=== PATIENT | female | born 1965 | race African-American/Black ===

== ENCOUNTER 2016-08-20 17:50 | Emergency (ER) | payer OTHER ==
[~2016-08-20 17:50] MED LIST: ALBUTEROL2.5 MG/31 IH; ALBUTEROL2.5 MG/32; AMOXICILLIN 25250 M1 PO; AUGMENTIN 875875 MG PO; COMBIVENT INH; COMBIVENT RESPIM4 GM IH; DARVOCET-N 1001 EACH PO; DOXYCYCLINE 10100 MG PO; HYDROCODON-ACE1 EA12 PO; LEVAQUIN 500 M500 M2 PO; MOBIC15 MG PO; NICOTINE TRANSD21 M1; NOHOMEMEDICATIONS; NORCO 5-325 TA1 EACH PO; PERCOCET 5-3251 EACH PO; PREDNISONE 10 M10 MG PO; PREDNISONE 20 M20 MG PO; PREDNISONE50 MG PO; PROAIR HFA8.5 GM INH; PROMETHAZINE-C120 ML PO; PROMETHAZINE/C118 ML PO; SPIRIVA INH; TESSALON PERLE100 MG PO; TORADOL 10 MG T10 MG PO; TUSSIONEX PENN473 ML PO; TYLENOL325 MG PO; VENTOLIN HFA 1818 GM INH; XANAX 0.5 MG0.5 M1 PO; ZPAK PO
== END 2016-08-20 23:00 | disposition left against medical advice (07) ==
LOC: ER 17:50
DX: Z53.21 Procedure and treatment not carried out due to patient leaving prior to being seen by health care provider (principal)

== ENCOUNTER 2016-11-10 23:24 | Observation (INO) | payer OTHER ==
[~2016-11-10] VITALS: Ht 170.2 cm; Wt 81.2 kg
--- NOTE | ~2016-11-10 | EKG ---
[place] [address] [facility] [place] [address] ELECTROCARDIOGRAM REPORT Name: GREGG ARTHUR Room #: 405-P 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
[2016-11-10 23:26] VITALS: BP 136/94
[2016-11-10] MEDS ORDERED: XANAX 0.5 MG0.5 MG (23:55)
[2016-11-11 01:08] LABS: ABSOLUTE NEUTROPHILS 2.2 thou/uL (1.4-8.2); BASOPHILS 1.1 % (0.0-2.0); EOSINOPHILS 1.8 % (0.0-3.0); HEMATOCRIT 45.5 % (37.0-47.0); HEMOGLOBIN 16.1 gm/dL (12.0-15.0); LYMPHOCYTES 55.4 % (24.0-44.0); MCH 34.6 pg (26.0-34.0); MCHC 35.3 g/dL (28.0-37.0); MONOCYTES 6.9 % (1.0-8.0); PLATELET COUNT 205 thou/uL (150-400); POLYS 34.8 % (36.0-66.0); RBC 4.65 mil/uL (4.20-5.00); RDW 12.9 % (10.5-14.5); WBC 6.3 thou/uL (4.0-11.0)
[2016-11-11 01:13] LABS: ANION GAP 9 mmol/L (7-16); BUN 18 mg/dL (7-18); CALCIUM 9.7 mg/dL (8.5-10.1); CHLORIDE 104 mmol/L (98-107); CO2 28 mmol/L (21-32); CREATININE 1.1 mg/dL (0.6-1.0); GLUCOSE 104 mg/dL (74-106); POTASSIUM 3.8 mmol/L (3.5-5.1); SODIUM 141 mmol/L (136-145)
[2016-11-11 01:21] LABS: ALBUMIN 3.5 g/dL (3.4-5.0); ALKALINE PHOSPHATASE 98 U/L (46-116); MAGNESIUM 2.2 mg/dL (1.8-2.4); MANUAL DIFF NO; SGOT 17 U/L (15-37); SGPT 27 U/L (30-65); TOTAL BILIRUBIN 0.2 mg/dL (<0.1-1.0); TOTAL PROTEIN 7.6 g/dL (6.4-8.2); TROPONIN-I < 0.04 ng/mL (<0.04-0.07)
[2016-11-11 02:15] VITALS: BP 136/94
[2016-11-11 02:28] VITALS: BP 134/68
[2016-11-11 08:13] VITALS: BP 120/74
[2016-11-11 16:09] VITALS: BP 136/76
[2016-11-11 18:54] VITALS: BP 120/56
[2016-11-12 03:25] VITALS: BP 115/83
[2016-11-12 06:20] LABS: HEMATOCRIT 46.9 % (37.0-47.0); HEMOGLOBIN 16.1 gm/dL (12.0-15.0); MCH 33.7 pg (26.0-34.0); MCHC 34.3 g/dL (28.0-37.0); MCV 98.3 fL (80.0-100.0); RBC 4.77 mil/uL (4.20-5.00); RDW 13.1 % (10.5-14.5)
[2016-11-12 06:30] LABS: WBC 23.1 thou/uL (4.0-11.0)
[2016-11-12 06:36] LABS: CALCIUM 9.7 mg/dL (8.5-10.1); CREATININE 0.8 mg/dL (0.6-1.0); POTASSIUM 4.6 mmol/L (3.5-5.1)
[2016-11-12 08:06] LABS: HEMATOCRIT 48.1 % (37.0-47.0); HEMOGLOBIN 16.4 gm/dL (12.0-15.0); MANUAL DIFF YES; MCH 33.9 pg (26.0-34.0); MCHC 34.2 g/dL (28.0-37.0); MCV 99.2 fL (80.0-100.0); PLATELET COUNT 225 thou/uL (150-400); RBC 4.85 mil/uL (4.20-5.00); RDW 13.1 % (10.5-14.5)
[2016-11-12 08:22] VITALS: BP 110/72
[2016-11-12 08:51] LABS: ABSOLUTE NEUTROPHILS 21.5 thou/uL (1.4-8.2); PLATELET ESTIMATE NORMAL; TOTAL CELL COUNT 100
[2016-11-12 11:24] VITALS: BP 127/93
[2016-11-12 15:56] VITALS: BP 132/86
[2016-11-12 20:00] VITALS: BP 137/91
[2016-11-13 04:00] VITALS: BP 130/80
[2016-11-13 06:14] LABS: HEMATOCRIT 48.6 % (37.0-47.0); HEMOGLOBIN 16.2 gm/dL (12.0-15.0); MCH 33.1 pg (26.0-34.0); MCHC 33.3 g/dL (28.0-37.0); MCV 99.5 fL (80.0-100.0); RBC 4.88 mil/uL (4.20-5.00); RDW 13.2 % (10.5-14.5); WBC 23.3 thou/uL (4.0-11.0)
[2016-11-13 06:29] LABS: CALCIUM 9.7 mg/dL (8.5-10.1); CREATININE 0.8 mg/dL (0.6-1.0); POTASSIUM 4.5 mmol/L (3.5-5.1)
[2016-11-13 20:00] VITALS: BP 136/76
[2016-11-14] VITALS (7 sets, daily range): BP systolic 128–136; BP diastolic 70
[2016-11-14 06:16] LABS: HEMATOCRIT 48.1 % (37.0-47.0); HEMOGLOBIN 16.5 gm/dL (12.0-15.0); MCH 34.1 pg (26.0-34.0); MCHC 34.4 g/dL (28.0-37.0); MCV 99.1 fL (80.0-100.0); PLATELET COUNT 229 thou/uL (150-400); RBC 4.86 mil/uL (4.20-5.00); WBC 15.5 thou/uL (4.0-11.0)
[2016-11-14 06:19] LABS: MANUAL DIFF YES
[2016-11-14 06:21] LABS: CALCIUM 9.3 mg/dL (8.5-10.1); CREATININE 0.7 mg/dL (0.6-1.0); POTASSIUM 4.6 mmol/L (3.5-5.1)
[2016-11-14 09:03] LABS: TOTAL CELL COUNT 100
[2016-11-14] MEDS ORDERED: ATORVASTATIN CA40 MG PO (09:27)
[2016-11-14] MEDS ORDERED: ASPIR 8181 MG PO (09:28)
[2016-11-14] MEDS ORDERED: MEDROL DOSPAK21 TA1 PO (09:29)
[2016-11-14] MEDS ORDERED: CHANTIX1 EACH PO (13:02)
[2016-11-14] MEDS ORDERED: PROAIR HFA8.5 GM INH (13:11)
[2016-11-14] MEDS ORDERED: XANAX 0.5 MG0.5 MG PO (13:11)
== END 2016-11-14 16:29 | disposition home or self-care (01) ==
LOC: ER 23:24 → EROBS 11-11 01:55 → 4N 11-11 01:55 → EROBS 11-11 01:55 → ER 11-11 01:55 → 4N 11-11 02:27 → ENTRNSPT 11-14 16:15 → 4N 11-14 16:29
PROVIDERS: Emergency Medicine; Family Medicine; Nurse Practitioner Family
DX: J44.1 Chronic obstructive pulmonary disease with (acute) exacerbation (principal); F41.9 Anxiety disorder, unspecified; J45.909 Unspecified asthma, uncomplicated; F17.210 Nicotine dependence, cigarettes, uncomplicated; G89.29 Other chronic pain; F12.10 Cannabis abuse, uncomplicated; Z86.73 Personal history of transient ischemic attack (TIA), and cerebral infarction without residual deficits; Z79.899 Other long term (current) drug therapy; Z80.9 Family history of malignant neoplasm, unspecified

== ENCOUNTER 2016-12-21 20:02 | Emergency (ER) | payer OTHER ==
[~2016-12-21] VITALS: Ht 170.2 cm; Wt 81.7 kg
[~2016-12-21 20:02] MED LIST changes: +ASPIR 8181 MG PO; +ATORVASTATIN CA40 MG PO; +CHANTIX1 EACH PO; +MEDROL DOSPAK21 TA1 PO; +XANAX 0.5 MG0.5 MG; +XANAX 0.5 MG0.5 MG PO
[2016-12-21] MEDS ORDERED: OXYGEN MISCELL (20:15)
[2016-12-21] MEDS ORDERED: XANAX 0.25 MG0.25 MG PO (20:15)
[2016-12-21] MEDS ORDERED: PREDNISONE 20 M20 MG PO (22:10)
[2016-12-21] MEDS ORDERED: ALBUTEROL2.5 MG/31 INH (22:10)
[2016-12-21] MEDS ORDERED: VENTOLIN HFA 1818 GM INH (22:14)
== END 2016-12-21 22:20 | disposition home or self-care (01) ==
LOC: ER 20:02
DX: J44.1 Chronic obstructive pulmonary disease with (acute) exacerbation (principal); F41.9 Anxiety disorder, unspecified; G89.29 Other chronic pain; M54.9 Dorsalgia, unspecified; F17.210 Nicotine dependence, cigarettes, uncomplicated; F10.99 Alcohol use, unspecified with unspecified alcohol-induced disorder; Z86.73 Personal history of transient ischemic attack (TIA), and cerebral infarction without residual deficits

== ENCOUNTER 2017-01-05 00:59 | Inpatient (IN) | payer OTHER ==
[~2017-01-05] VITALS: Ht 170.2 cm; Wt 83.0 kg
--- NOTE | ~2017-01-05 | EKG ---
[place] [address] [address] [facility] [place] [address] ELECTROCARDIOGRAM REPORT Name: JERSONRAADGREGG Isaac Room #: 437-P ADM IN M.R.#: [id number] Admission: 01/05/17 Attend Phys: Alem Augustin Discharge: Date of : 67 Report #: [id number] THIS REPORT FOR: //name// [facility] ED Test Date: 2017-01-05 Test Time: 01:19:06 Pat Name: GREGG ARTHUR Department: Room: [facility] Gender: F Community Relations Director: LORRI : 1965 Requested By: Flavio Marroquin Order Number: [id number] MD: Roni Lopez Measurements Intervals [place] Rate: 118 P: 81 DE: 140 QRS: 62 QRSD: 88 T: -7 QT: 305 QTc: 428 Interpretive Statements Sinus tachycardia Biatrial enlargement Borderline T wave abnormalities Baseline wander in lead(s) V5 Compared to ECG 11/11/2016 00:29:21 Atrial abnormality now present T-wave abnormality now present Sinus rhythm no longer present Electronically Signed On 01-05-2017 11:06:34 CDT by Roni Lopez [email or web address] <ELECTRONICALLY SIGNED> By: Roni Lopez MD 01/05/17 1106 0119 0119 Roni Lopez MD /EPI
--- NOTE | ~2017-01-05 | HC ---
[facility] [place] [address] CONSULTATION Name: GREGG ARTHUR Room #: 437-P ADM IN M.R.#: [id number] Admission: 01/05/17 Attend Phys: Oscar Perea MD Discharge: Date of : 67 Report #: [id number] THIS REPORT FOR: //name// CC: FANNIE physician/PCP Alem Augustin REFERRAL PHYSICIAN: Alem Augustin MD REASON FOR CONSULTATION: Dyspnea. HISTORY OF PRESENT ILLNESS: The patient is a 51-year-old -Italian female who presented to the Emergency Room with progressive dyspnea. She has known history of COPD/asthma. A pulmonary consultation was requested. The patient was previously hospitalized here at [facility] in 11/2016. The patient states that she was in her usual state of health until for the last two days, she has noted increasing dyspnea and chest tightness. She smokes about a pack a day. She also smokes marijuana. For that reason, she presented to the Emergency Room. Otherwise, she denies any chest pain, hemoptysis or productive cough. She denies any recent nausea, vomiting or diarrhea. As mentioned, she has smoked most of her life about a pack a day along with marijuana. She also states that she does not have insurance and does not have a regular doctor. According to the patient, she uses 2 liters of O2 continuously at home. She states that she has applied for Medicaid in September and has not received any confirmation regarding her Medicaid status. PAST MEDICAL HISTORY: Notable for asthma along with COPD, apparently oxygen dependent 2 liters; tobacco abuse smoking about a pack a day since 1984; also smokes marijuana; anxiety disorder; chronic pain due to arthritis involving her low back and CVA in 2002 and again in 2006. PAST SURGICAL HISTORY: Status post bilateral tubal ligation. ALLERGIES: None to medications. REPORTED HOME MEDICATIONS: Include AccuNeb q. 4 and Ventolin HFA p.r.n. She was recently given prednisone and alprazolam 0.25 mg b.i.d. FAMILY HISTORY: Noncontributory. [facility] [address] [place] [address] CONSULTATION Name: GREGG ARTHUR Isaac Room #: 437-P [facility] IN ..#: [id number] Admission: 01/05/17 Attend Phys: Oscar Perea MD Discharge: Date of : 67 Report #: [id number] SOCIAL HISTORY: As mentioned above, active smoker smoking about a pack a day and also smokes marijuana. She drinks socially. Denies any injection drug use. REVIEW OF SYSTEMS: As mentioned above, otherwise 10-point system reviewed and negative. PHYSICAL EXAMINATION: GENERAL: She is awake, alert and in mild respiratory distress. VITAL SIGNS: Temperature is 98 degrees Fahrenheit, pulse is 100, respiratory rate is 22, blood pressure 107/54 mmHg and saturation is 95% on 3 liters of O2. HEENT: Normocephalic and atraumatic. NECK: Supple. No neck lymphadenopathy or thyromegaly. CHEST: Breath sounds are fair with mild expiratory wheezes. No rales. CARDIOVASCULAR: Normal S1 and S2. There are no murmurs or gallop. There is no JVD. There is no carotid bruit. Pulses are 2+/4+ bilaterally. ABDOMEN: Soft, nontender, no organomegaly or masses felt. GENITOURINARY: Deferred. RECTAL: Deferred. EXTREMITIES: There is no edema, cyanosis or clubbing. LABORATORY DATA: Chest x-ray is clear. EKG shows sinus tachycardia, biatrial enlargement, borderline T-wave abnormalities. Influenza A and B swab was negative. BNP was normal. Electrolytes are normal. WBC 11,100 and hemoglobin is 16.6 without significant bandemia. Eosinophils are normal. Arterial blood gas revealed pH 7.45, pCO2 of 34 and pO2 of 55 on 2 liters of O2. IMPRESSION: 1. Progressive dyspnea, chest tightness in this 51-year-old -Italian female with a history of COPD/asthma, and tobacco abuse. Etiology is likely due to exacerbation of chronic obstructive lung disease. Pneumonia is felt to be less likely though she does have mild leukocytosis. Cannot rule out early onset of pneumonia. 2. Acute on chronic hypoxic respiratory failure. She apparently is on 2 liters of O2 at home. 3. Polycythemia, may be related to volume depletion. We will repeat hemoglobin. She may have secondary polycythemia due to chronic hypoxia due to a lung disease. 4. Tobacco abuse including marijuana use. Discussed with the patient regarding importance of smoke cessation. 5. Anxiety disorder may be in part related to chronic dyspnea. 6. Chronic back pain. RECOMMENDATION: Agree with current treatment plans including corticosteroids, bronchodilators, and broad-spectrum antibiotics. While on high dose corticosteroids, nebulized inhaled steroids is not necessary. Agree with broad-spectrum antibiotics. Again, strongly recommended smoke cessation [address] [address] CONSULTATION Name: GREGG ARTHUR Room #: 437-P ADM IN M.R.#: [id number] Admission: 01/05/17 Attend Phys: Oscar Perea MD Discharge: Date of : 67 Report #: [id number] counselling. It is also strongly recommended to the patient to have ongoing outpatient followup with a primary care. We will ask case management and social service to assist with her regarding her Medicare application, which was sent in September of this year. I also discussed with the patient if she continues to smoke, her pulmonary disease could worsen where it can potentially be life threatening. The patient voices understanding. Thank you for this consultation. <ELECTRONICALLY SIGNED> By: Charlie Purdy MD 01/07/17 1529 1610 0630 Charlie Purdy MD /nt
[~2017-01-05 00:59] MED LIST changes: +ALBUTEROL2.5 MG/31 INH; +OXYGEN MISCELL; +XANAX 0.25 MG0.25 MG PO
[2017-01-05 01:19] VITALS: BP 136/87; BP 141/99
[2017-01-05 01:34] LABS: EOSINOPHILS 0.4 % (0.0-3.0); HEMATOCRIT 48.2 % (37.0-47.0); HEMOGLOBIN 16.6 gm/dL (12.0-15.0); LYMPHOCYTES 37.8 % (24.0-44.0); MCH 33.5 pg (26.0-34.0); MCHC 34.4 g/dL (28.0-37.0); MCV 97.4 fL (80.0-100.0); MONOCYTES 6.9 % (1.0-8.0); PLATELET COUNT 248 thou/uL (150-400); POLYS 53.9 % (36.0-66.0); RBC 4.95 mil/uL (4.20-5.00); RDW 13.5 % (10.5-14.5); WBC 11.1 thou/uL (4.0-11.0)
[2017-01-05 01:35] LABS: MANUAL DIFF NO
[2017-01-05 01:41] LABS: ANION GAP 12 mmol/L (7-16); BUN 15 mg/dL (7-18); CALCIUM 9.9 mg/dL (8.5-10.1); CHLORIDE 105 mmol/L (98-107); CO2 25 mmol/L (21-32); GLUCOSE 97 mg/dL (74-106); POTASSIUM 4.3 mmol/L (3.5-5.1); SODIUM 142 mmol/L (136-145)
[2017-01-05 01:49] LABS: TROPONIN-I < 0.04 ng/mL (<0.06)
[2017-01-05 02:06] LABS: ABG SAMPLE TYPE ARTERIAL; BE(vivo) 0.5 mmol/L (-2 to +3); HCO3 23.8 mmol/L (22.0-26.0); LACTATE 1.46 mmol/L (0.5-2.0); O2(CT) 19.2 mL/dL (15.0-23.0); PCO2 34.5 mmHg (35.0-45.0); PO2 55.2 mmHg (80.0-100.0); STICK SITE L.RADIAL; pH 7.456 (7.360-7.450); sO2 90.5 % (92.0-98.0); tCO2 24.8 mmol/L (24.0-30.0)
[2017-01-05 02:07] LABS: O2Hb 84.6 % (92.0-98.0)
[2017-01-05 07:06] VITALS: BP 106/65
[2017-01-05 07:30] VITALS: BP 107/54
[2017-01-05 16:00] VITALS: BP 153/67
[2017-01-05 20:00] VITALS: BP 160/96
[2017-01-06 00:41] VITALS: BP 117/76
[2017-01-06 05:30] VITALS: BP 105/66
[2017-01-06 05:46] LABS: HEMATOCRIT 45.8 % (37.0-47.0); HEMOGLOBIN 15.5 gm/dL (12.0-15.0); MCH 33.2 pg (26.0-34.0); MCHC 33.8 g/dL (28.0-37.0); MCV 98.3 fL (80.0-100.0); PLATELET COUNT 246 thou/uL (150-400); RBC 4.66 mil/uL (4.20-5.00); RDW 13.6 % (10.5-14.5); WBC 23.4 thou/uL (4.0-11.0)
[2017-01-06 05:47] LABS: MANUAL DIFF YES
[2017-01-06 05:54] LABS: CALCIUM 9.9 mg/dL (8.5-10.1); CREATININE 0.9 mg/dL (0.6-1.0); MAGNESIUM 2.3 mg/dL (1.8-2.4); POTASSIUM 4.4 mmol/L (3.5-5.1)
[2017-01-06 08:00] VITALS: BP 107/72
[2017-01-06 09:45] LABS: ABSOLUTE NEUTROPHILS 20.1 thou/uL (1.4-8.2); PLATELET ESTIMATE NORMAL; TOTAL CELL COUNT 100
[2017-01-06 16:00] VITALS: BP 121/93
[2017-01-06 19:27] VITALS: BP 147/73
[2017-01-07 03:40] VITALS: BP 118/63
[2017-01-07 08:00] VITALS: BP 135/84
[2017-01-07 16:00] VITALS: BP 140/76
[2017-01-07 20:20] VITALS: BP 155/78
[2017-01-08 03:55] VITALS: BP 143/92
[2017-01-08 06:39] LABS: HEMATOCRIT 45.4 % (37.0-47.0); HEMOGLOBIN 15.2 gm/dL (12.0-15.0); MCH 33.1 pg (26.0-34.0); MCHC 33.5 g/dL (28.0-37.0); MCV 98.9 fL (80.0-100.0); RBC 4.59 mil/uL (4.20-5.00); RDW 13.9 % (10.5-14.5)
[2017-01-08 06:44] LABS: WBC 20.2 thou/uL (4.0-11.0)
[2017-01-08 07:20] VITALS: BP 127/52
[2017-01-08 07:34] LABS: CALCIUM 9.6 mg/dL (8.5-10.1); CREATININE 0.9 mg/dL (0.6-1.0); MAGNESIUM 2.6 mg/dL (1.8-2.4); POTASSIUM 4.6 mmol/L (3.5-5.1)
[2017-01-08 15:50] VITALS: BP 124/81
[2017-01-09 07:15] VITALS: BP 139/88
[2017-01-09 08:00] VITALS: BP 139/88
[2017-01-09 11:10] VITALS: BP 139/88
[2017-01-09] MEDS ORDERED: LEVAQUIN 750 M750 MG PO (13:40)
[2017-01-09] MEDS ORDERED: VENTOLIN HFA 1818 GM INH (13:40)
[2017-01-09] MEDS ORDERED: ALBUTEROL2.5 MG/31 INH (13:40)
[2017-01-09] MEDS ORDERED: PROBIOTIC1 EAC1 PO (13:40)
[2017-01-09] MEDS ORDERED: PREDNISONE 10 M10 MG PO (13:40)
[2017-01-09] MEDS ORDERED: MUCINEX600 MG PO (13:40)
== END 2017-01-09 16:23 | disposition home or self-care (01) | DRG 189 ==
LOC: ER 00:59 → 4S 03:28 → EROBS 03:28 → 4S 07:14
PROVIDERS: Emergency Medicine; Hospitalist; Internal Medicine; Nurse Practitioner
DX: J96.21 Acute and chronic respiratory failure with hypoxia (principal); J44.1 Chronic obstructive pulmonary disease with (acute) exacerbation; F41.9 Anxiety disorder, unspecified; G89.29 Other chronic pain; M54.9 Dorsalgia, unspecified; F17.210 Nicotine dependence, cigarettes, uncomplicated; M19.90 Unspecified osteoarthritis, unspecified site; F12.90 Cannabis use, unspecified, uncomplicated; Z83.6 Family history of other diseases of the respiratory system; Z99.81 Dependence on supplemental oxygen; Z86.73 Personal history of transient ischemic attack (TIA), and cerebral infarction without residual deficits
CPT/HCPCS: 10100

== ENCOUNTER 2017-02-17 02:42 | Inpatient (IN) | payer OTHER ==
[2017-02-17] VITALS (12 sets, daily range): BP systolic 90–142; BP diastolic 66–95
[~2017-02-17] VITALS: Ht 170.2 cm; Wt 81.6 kg
--- NOTE | ~2017-02-17 | O ---
[facility] [place] [address] OPERATIVE REPORT Name: GREGG ARTHUR Room #: 407-P ADM IN M.R.#: [id number] Admission: 02/17/17 Attend Phys: Oscar Perea MD Discharge: Date of : 67 Report #: [id number] THIS REPORT FOR: //name// CC: FANNIE physician/PCP Oscar Perea DATE OF SERVICE: 02/17/2017 PREOPERATIVE DIAGNOSES: Right hand abscess with fifth finger tenosynovitis. POSTOPERATIVE DIAGNOSES: Right hand abscess with fifth finger tenosynovitis. PROCEDURE: Incision and debridement of right hand abscess involving the fifth finger flexor tendon sheath. SURGEON: Dieog Stockton MD INDICATIONS: This 51-year-old female has developed a right hand infection after picking at a callus over the palm in line with the fifth finger at the distal palmar crease. Clinical findings are consistent with a subcutaneous abscess and possible flexor tenosynovitis. We have elected to go ahead with surgical debridement. DESCRIPTION OF PROCEDURE: The patient was taken to the operating room where she was placed under general anesthetic. The right hand was meticulously prepped and draped. An Esmarch bandage was used to gently exsanguinate the hand and left at the mid forearm as a gentle tourniquet. A transverse skin incision was made at the level of the distal palmar crease in line with the fifth ray. There was obvious subcutaneous abscess, and a moderate amount of purulent debris was immediately removed. Cultures were sent. The callus at the margin of this lesion was carefully excised creating a better smooth skin margin. The subcutaneous tissue was then aggressively irrigated with antibiotic irrigation. The area of purulence actually seems to be in the subcutaneous tissues and does not clearly extend to the flexor tendon sheath; however, given the location and her discomfort with finger movement, I felt it was most appropriate to go ahead to open and debride the flexor tendon sheath. Longitudinal skin incision was made in the proximal georges overlying the fifth finger flexor tendon. The sheath seemed to be uneffected without much fluid and certainly no evidence of gross purulence. Nevertheless, there was some reactive synovitis and some fluid collection. The flexor tendon sheath was irrigated proximally and distally. There was no other area of purulence, and this did not seem to extend more proximally into the palm. At this point, the wound appeared to be clean, and I felt the skin edges could be reapproximated in a loose fashion. Several 4-0 Prolene sutures were used to very gently reapproximate the skin edges. The Esmarch bandage was removed. Good hemostasis was established with simple direct [facility] [address] [place] [address] OPERATIVE REPORT Name: GREGG ARTHUR Room #: 407-P [facility] IN M.R.#: [id number] Admission: 02/17/17 Attend Phys: Oscar Perea MD Discharge: Date of : 67 Report #: [id number] pressure for several minutes. A sterile dressing was applied. The patient was awakened and returned to recovery room in good condition. By: [id number] Diego Stockton MD /nt
--- NOTE | ~2017-02-17 | HC ---
[facility] [place] [address] CONSULTATION Name: GREGG ARTHUR Room #: 407-P ADM IN M.R.#: [id number] Admission: 02/17/17 Attend Phys: Oscar Perea MD Discharge: Date of : 67 Report #: [id number] THIS REPORT FOR: //name// CC: FANNIE physician/PCP Oscar Perea DATE OF SERVICE: 02/17/2017 This 51-year-old female presents with right hand pain and swelling consistent with an abscess over the palmar aspect of the 5th finger. She states she had a callus there at the base of the fifth digit in line with the distal palmar crease, which she noted about 10-14 days ago. She states she picked at this callus with a small manicure tool and then developed redness, pain, and swelling. Her current findings are suggestive of a subcutaneous abscess in this region. She is admitted for further evaluation and treatment. At the time of my evaluation, she has no other complaints of discomfort aside from the right hand. Her symptoms are rather well localized over the palm in line with the 5th metacarpal and 5th finger. She does have some discomfort with movement of the 5th digit suggesting some flexor tenosynovitis. This extends to about the mid palm, but not down to the proximal palm or wrist level. She seems to have better movement and less discomfort involving the other digits. Neurologic and vascular status are normal. I think this is consistent with a subcutaneous abscess and possibly flexor tenosynovitis involving the 5th finger. I have explained treatment options, she has already been started on antibiotics, I think a surgical debridement of this area is most appropriate. She understands and wishes to proceed. By: [id number] 1403 Diego Stockton MD /nt
[~2017-02-17 02:42] MED LIST changes: +LEVAQUIN 750 M750 MG PO; +MUCINEX600 MG PO; +PROBIOTIC1 EAC1 PO
[2017-02-17 03:44] LABS: CALCIUM 9.5 mg/dL (8.5-10.1); CREATININE 1.2 mg/dL (0.6-1.0); POTASSIUM 3.6 mmol/L (3.5-5.1)
[2017-02-17 05:07] LABS: HEMATOCRIT 44.2 % (37.0-47.0); HEMOGLOBIN 15.4 gm/dL (12.0-15.0); MANUAL DIFF YES; MCH 34.3 pg (26.0-34.0); MCHC 34.7 % (28.0-37.0); MCV 98.6 fL (80.0-100.0); PLATELET COUNT 257 thou/uL (150-400); RBC 4.48 mil/uL (4.20-5.00); RDW 14.2 % (10.5-14.5); WBC 9.2 thou/uL (4.0-11.0)
[2017-02-17 05:41] LABS: ABSOLUTE NEUTROPHILS 4.2 thou/uL (1.4-8.2); ATYPICAL LYMPHS 14 %; TOTAL CELL COUNT 100
[2017-02-17 05:42] LABS: ANISOCYTOSIS 1+; LARGE PLATELETS FEW; POLYCHROMASIA 1+
[2017-02-18 00:10] VITALS: BP 127/80
[2017-02-18 05:13] VITALS: BP 116/81
[2017-02-18 06:35] LABS: BASOPHILS 0.6 % (0.0-2.0); EOSINOPHILS 0.1 % (0.0-3.0); HEMATOCRIT 41.3 % (37.0-47.0); HEMOGLOBIN 14.1 gm/dL (12.0-15.0); LYMPHOCYTES 20.2 % (24.0-44.0); MCH 34.3 pg (26.0-34.0); MCHC 34.1 g/dL (28.0-37.0); MCV 100.5 fL (80.0-100.0); MONOCYTES 6.5 % (1.0-8.0); PLATELET COUNT 245 thou/uL (150-400); POLYS 72.6 % (36.0-66.0); RBC 4.11 mil/uL (4.20-5.00); RDW 14.2 % (10.5-14.5); WBC 12.3 thou/uL (4.0-11.0)
[2017-02-18 06:43] LABS: MANUAL DIFF NO
[2017-02-18 06:50] LABS: CALCIUM 8.8 mg/dL (8.5-10.1); CREATININE 0.7 mg/dL (0.6-1.0); MAGNESIUM 2.1 mg/dL (1.8-2.4); POTASSIUM 4.1 mmol/L (3.5-5.1)
[2017-02-18 16:00] VITALS: BP 111/81
[2017-02-18 20:51] VITALS: BP 103/76
[2017-02-19 04:49] VITALS: BP 125/91
[2017-02-19 05:41] LABS: HEMATOCRIT 38.7 % (37.0-47.0); HEMOGLOBIN 13.1 gm/dL (12.0-15.0); MCHC 33.8 g/dL (28.0-37.0); MCV 100.6 fL (80.0-100.0); RBC 3.84 mil/uL (4.20-5.00); RDW 14.5 % (10.5-14.5); WBC 10.5 thou/uL (4.0-11.0)
[2017-02-19 05:48] LABS: CALCIUM 8.7 mg/dL (8.5-10.1); CREATININE 0.7 mg/dL (0.6-1.0); POTASSIUM 4.3 mmol/L (3.5-5.1)
[2017-02-19 08:00] VITALS: BP 102/74
[2017-02-19] MEDS ORDERED: OXYCODONE HCL 55 MG PO (12:18)
[2017-02-19] MEDS ORDERED: AUGMENTIN 875-1 EACH PO (12:23)
[2017-02-19 12:49] VITALS: BP 102/74
== END 2017-02-19 14:00 | disposition home or self-care (01) | DRG 580 ==
LOC: ER 02:42 → EROBS 05:05 → 4N 05:05 → ENTRNSPT 02-19 13:54 → EDTRNSPTSTS 02-19 13:56 → 4N 02-19 14:00
PROVIDERS: Emergency Medicine; Internal Medicine; Nurse Practitioner
PROC: 0JBJ0ZZ Excision of Right Hand Subcutaneous Tissue and Fascia, Open Approach (ICD-10-PCS; principal; 2017-02-17)
DX: L02.511 Cutaneous abscess of right hand (principal); N17.9 Acute kidney failure, unspecified; L03.113 Cellulitis of right upper limb; J44.9 Chronic obstructive pulmonary disease, unspecified; G89.29 Other chronic pain; M54.9 Dorsalgia, unspecified; M65.9 Synovitis and tenosynovitis, unspecified; F41.9 Anxiety disorder, unspecified; F32.9 Major depressive disorder, single episode, unspecified; F12.10 Cannabis abuse, uncomplicated; Z82.5 Family history of asthma and other chronic lower respiratory diseases; Z80.9 Family history of malignant neoplasm, unspecified; Z79.899 Other long term (current) drug therapy; Z87.891 Personal history of nicotine dependence; Z86.73 Personal history of transient ischemic attack (TIA), and cerebral infarction without residual deficits
CPT/HCPCS: 10091; 50010; 50101; 50386; 56526; 57091; 62110; 62900; 70005

== ENCOUNTER 2018-03-31 04:39 | Inpatient (IN) | payer OTHER ==
[~2018-03-31] VITALS: Ht 170.2 cm; Wt 81.2 kg
[2018-03-31] VITALS (9 sets, daily range): BP systolic 99–159; BP diastolic 53–99
[~2018-03-31 04:39] MED LIST changes: +AUGMENTIN 875-1 EACH PO; +OXYCODONE HCL 55 MG PO
[2018-03-31 04:56] LABS: HEMATOCRIT 51.4 % (37.0-47.0); HEMOGLOBIN 17.8 gm/dL (12.0-15.0); MCH 34.3 pg (26.0-34.0); MCHC 34.6 g/dL (28.0-37.0); RBC 5.19 mil/uL (4.20-5.00); RDW 13.7 % (10.5-14.5); WBC 9.6 thou/uL (4.0-11.0)
[2018-03-31 05:04] LABS: ANION GAP 11 mmol/L (7-16); BUN 11 mg/dL (7-18); CALCIUM 9.5 mg/dL (8.5-10.1); CHLORIDE 103 mmol/L (98-107); CO2 25 mmol/L (21-32); GLUCOSE 96 mg/dL (74-106); SODIUM 139 mmol/L (136-145)
[2018-03-31 05:12] LABS: TROPONIN-I <0.06 ng/mL (<0.06)
--- NOTE | 2018-03-31 08:38 | EKG ---
[place] [address] [facility] [place] [address] ELECTROCARDIOGRAM REPORT Name: GREGG ARTHUR Room #: 355-P [facility] IN .R.#: [id number] Admission: 03/31/18 Attend Phys: Oscar Perea MD Discharge: Date of : 67 Report #: [id number] THIS REPORT FOR: //name// [facility] ED Test Date: 2018-03-31 Test Time: 05:03:25 Pat Name: GREGG ARTHUR Department: Room: 355 Gender: F Assembly Operator: beronica : 1965 Requested By: Flavio Marroquin Order Number: [id number] MD: Ken Redding Measurements Intervals [place] Rate: 96 P: 78 MA: 156 QRS: 67 QRSD: 91 T: 45 QT: 334 QTc: 422 Interpretive Statements Sinus rhythm Right atrial enlargement Compared to ECG 01/05/2017 01:19:06 Sinus tachycardia no longer present Electronically Signed On 03-31-2018 8:38:49 MULE TENDER by Ken Redding [email or web address] <ELECTRONICALLY SIGNED> By: Ken Redding MD, [facility] 03/31/18 0838 0503 050 Ken Redding MD, FAC /EPI
--- NOTE | 2018-03-31 15:18 | NUR ---
ASSUMED CARE AT 0700. PT WAS ADMITTED FROM ER UNDER 'S CARE. ADMITTED FOR COPD EXACERBATION. SEEN BY LENY BOUDREAUX AND AT BEDSIDE. NON CARDIAC CHEST PAIN IS TX WITH OXYCODONE AND PT REPORT RELIEF AFTER OXYCODONE. PT IS ON 2L OXYGEN. PER PT, PT USES O2 AT HOME. LUNG SOUNDS ARE DINISHED AND LABORED AT THE TIME OF THE ADMISSION. ABLE TO VOID FREELY ON BESDIE COMMODE. IV LEVAQUIN STARTED. ABDOMEN IS OBESE AND SOFT. DENIES ANY GI RELASTED SYMPTOMS AT THIS POINT. NO S/S ACUTE DISTRESS NOTED OR REPORTED AT THIS TIME. WILL CONT TO MONITOR FOR ANY CHANGES IN CONDITION.
--- NOTE | 2018-03-31 15:19 | NUR ---
ASSESSMENT: CM REVIEWED CHART AND MET WITH PATIENT AT THE BEDSIDE. PT IS ALERT AND ORIENTED X4. PT WAS ADMITTED DUE TO COPD EXACERBATION. PT REPORTS THAT SHE LIVES IN AN APT WITH HER SON. PT REPORTS SHE IN ON A FIRST LEVEL APT SO HAS NO STEPS SHE HAS TO USE. PT REPORTS SHE IS INDEPENDENT WITH ADLS AND AMBULATION. PT STATES SHE CURRENTLY HAS A CONCENTRATOR AT HER HOME AND USES OXYGEN AT TIMES. CM ASKED WHICH COMPANY WAS SUPPLYING HER OXYGEN AND SHE STATED WELL NOONE ANYMORE I JUST HAVE TO CONCENTRATOR STILL. PATIENT WAS LISTED PATIENT PAY AND PT REPORTS THAT SHE CURRENTLY DOES NOT HAVE ANY INSURANCE BUT STATES SHE IS DISABLED AND HIRED AN PLEATER HAND TO GET MEDICAID BUT REPORTS IT WILL NOT KICK IN UNTIL SEPTEMBER. CM DISCUSSED REFERRAL TO [facility] WITH PATIENT AND PT WAS AGREEABLE WITH REFERRAL SO [facility] CAN CHECK THE STATUS OF HER MEDICAID. CM ALSO REACHED OUT TO STAFF TO SEE IF SHE QUALIFIES FOR MEDICATION ASSISTANCE. PT WILL ALSO NEED A NEBULIZER AT DISCHARGE. CM REACHED OUT TO [facility] WHO STATES THEY DO NOT SUPPLY [facility] NEBULIZERS BUT PATIENT COULD LIKELY PURCHASE ONE AT [facility]. CM WILL CONTINUE TO FOLLOW.
[2018-04-01 00:30] VITALS: BP 124/75
[2018-04-01 04:40] VITALS: BP 114/73
--- NOTE | 2018-04-01 05:39 | NUR ---
ASSUMED PT CARE AT 1900 WITH NO SIGN OF DISTRESS NOTED IN PT. PT IS ALERT AND ORIENTED WITH NO SIGN OF DISTRESS NOTED IN PT. PT IS ON 2L NC AND USES HOME OXYGEN AT HOME. SCHEDULED MED ADMINISTERED TO PT. PT IS STABLE, RECEIVING SCHEDULED BREATHING TREATMENT. PAIN MED ADMINISTERED, DENIES ANY FURTHER NEEDS AT THIS TIME.
[2018-04-01 08:22] VITALS: BP 144/93
--- NOTE | 2018-04-01 14:46 | NUR ---
AAOX4. CALM, PLEASANT. ANXIOUS ONCE AFTER NOT RECEIVING THE CORRECT LUNCH. XANAX GIVEN ORDERED. NSR PER TELE. FREQUENT CHECKS; WILL CONTINUE TO MONITOR.
[2018-04-01 15:55] VITALS: BP 142/91
--- NOTE | 2018-04-01 18:23 | NUR ---
[facility] TO [facility] BY [facility] W/O2, ACCOMPANIED BY VOLUNTEER. REPORT CALLED TO KEYONNA CID. DR. ARAUJO HAS OKAYED THE MOVE AND DISCONTINUANCE OF TELE.
[2018-04-01 18:41] VITALS: BP 132/87
--- NOTE | 2018-04-01 19:48 | NUR ---
PATIENT TRANSFERRED FROM [facility], REPORT FROM MIKI/RN. PATIENT ALERT AND ORIENTED X 4. UP AD ROBIN. O2 AT 2-3 LITERS/NC. MAY DISCHARGE ON FRIDAY.
--- NOTE | 2018-04-02 04:41 | NUR ---
Pt A/OX4,up ad yo without difficulties. C/o non-cardiac chest pain r/t coughing,medicated with Oxycodone with some relief reported.Pt has IRAHETA,O2 on @ 2.5L/NC.Tessalon jett administered at HS and effective. Pt also did request for a nicotine patch at beginning of shift,order obtained from [facility] and patch applied. Voiding without any problems reported. IV patent on left hand. Call light/personal items within reach,will continue to monitor pt.
[2018-04-02 07:45] VITALS: BP 143/90
--- NOTE | 2018-04-02 10:51 | NUR ---
ELIDIA reviewed chart and spoke with nursing and attending physician. [facility] from and is slowly progressing towards goals for discharge. Brenda is working with pt on her Medicaid application. Pt will need a nebulizer and possible home O2. ELIDIA is following to assist as needed with discharge planning.
--- NOTE | 2018-04-02 16:22 | NUR ---
PATIENT CARE WAS ASSUMED AT 0715.PATIENT IS ALERT AND ORIENTED X4.PATIENT HAS NO PAIN AT THIS TIME.PT HAS SOME ANXIETY ABOUT NOT BEING ABLE TO SMOKE.PT HAS PATCH IN PLACE.PT WAS GIVEN MEDS FOR ANXIETY.VITALS WERE STABLE.IV IS INTACT AND SALINE LOCKED.PT IS RESTING IN BED.WILL CONTINUE TO MONITOR PATIENT. CALL LIGHT, PHONE, AND PERSONAL BELONGINGS ARE WITHIN REACH.
[2018-04-02 19:55] VITALS: BP 131/79
--- NOTE | 2018-04-02 23:41 | NUR ---
Assumed pt care at 1900. Pt A/OX4,up ad yo in room.Pt c/o coughing spells that are making her have stress incontinence and requested for cough syrup.Order obtained from Merly MICHELE for Tussionex 5ml BID PRN,medication administered with relief reported. LS are coarse/crackles,reports yellow sputum at times. Has IRAHETA 02 @2.5L/NC. Nicotine patch applied on left shoulder. Resting quietly with eyes closed breathing with ease.Call light/personal items within reach.
[2018-04-03 02:27] VITALS: BP 133/92
[2018-04-03 08:15] VITALS: BP 129/80
--- NOTE | 2018-04-03 11:59 | NUR ---
PATIENT CARE WAS ASSUMED AT 0715.PATIENT IS ALERT AND ORIENTED X4.PT IS VERY SLEEPY, DUE TO NOT GETTING ENOUGH REST LAST NIGHT.PT HAS NO PAIN AT THIS TIME.VITALS ARE STABLE.IV IS INTACT AND SALINE LOCKED.CALL LIGHT,PHONE, AND PERSONAL BELONGINGS ARE WITHIN REACH.WILL CONTINUE TO MONITOR PATIENT.
[2018-04-03 13:20] VITALS: BP 129/80
--- NOTE | 2018-04-03 13:53 | NUR ---
ELIDIA reviewed chart and spoke with nursing and attending physician. Pt is progressing towards goals for discharge. Discharge home is anticipated for tomorrow. Pt will need a nebulizer and possible home O2. Rest/exercise oximetry ordered. Scripts on front of pt's chart for both. Pt is currently Medicaid pending. ELIDIA contacted [facility] liaison, who states they would be able to provide DME (Hospital will be billed for one month--then pt would be responsible after that time). [facility] would need to have a credit card on file for pt, in order to bill for the second month. ELIDIA met with pt at bedside to discuss discharge plan. Pt states she already has an O2 concentrator at home. She does not have any portable tanks. SW discussed need for credit card. Pt verbalized understanding and states she is willing to provide credit card info, but does not have her credit card with her. Pt is aware of anticipated discharge. ELIDIA updated [facility] liaison, who will meet with pt at bedside. ELIDIA discussed case with Director of Case Mgmt. Pt had [place] in the past and it has lapsed. Contact info for [facility] placed in pt's discharge summary. No additional SW needs identified at this time, but is available to assist should needs arise.
[2018-04-03 13:59] VITALS: BP 129/80
[2018-04-03 19:37] VITALS: BP 132/79
--- NOTE | 2018-04-04 04:17 | NUR ---
PATIENT ALERT AND ORIENTED X4. UP ADLIB IN ROOM. 02NC. SOME SOA NOTED WITH EXERTION. MEDICATED FOR NON CARDIAC CHEST PAIN X1. MEDICATED FOR COUGH. RT TREATMENTS PER ORDER. RESTING QUIETLY AT TIME OF NOTE.
[2018-04-04 07:55] VITALS: BP 136/89
--- NOTE | 2018-04-04 15:03 | NUR ---
ASSUMED CARE OF PATIENT AT 0715, PATIENT ALERT AND ORIENTED X 4. PATIENT UP AD ROBIN IN ROOM. PATIENT C/O PAIN WITH CHEST AREA/NON CARDIAC, DUE TO COUGHING. PATIENT HAS RIGHT HAND IV 22G IN PLACE, RECEIVED IV ANTIBIOTIC/LEVOFLOXACIN IVPB Q24HRS. PATIENT HAS COUGH, NON-PRODUCTIVE, PATIENT RECEIVES COUGH SYRUP Q12HR. DR ARAUJO HERE TO SEE PATIENT, WILL NOT DISCHARGE TO DAY, MAYBE TOMORROW. PATIENT HAS LABORED BREATHING, BILATERAL CLEAR/DIMINISHED. WILL CONTINUE TO MONITOR.
[2018-04-04 15:52] LABS: HEMATOCRIT 46.3 % (37.0-47.0); HEMOGLOBIN 15.6 gm/dL (12.0-15.0); MCH 33.5 pg (26.0-34.0); MCHC 33.7 g/dL (28.0-37.0); MCV 99.3 fL (80.0-100.0); RBC 4.66 mil/uL (4.20-5.00); RDW 13.3 % (10.5-14.5); WBC 16.7 thou/uL (4.0-11.0)
[2018-04-04 15:58] LABS: CALCIUM 9.6 mg/dL (8.5-10.1); CREATININE 0.9 mg/dL (0.6-1.0); MAGNESIUM 2.3 mg/dL (1.8-2.4); POTASSIUM 4.4 mmol/L (3.5-5.1)
[2018-04-04 19:23] VITALS: BP 127/74
--- NOTE | 2018-04-05 06:35 | NUR ---
PATIENT ALERT AND ORIENTED X4. UP ADLIB IN ROOM. MEDICATED FOR PAIN AND ANXIETY WELL COUGH DURING THE NIGHT. PATIENT C/O PAIN TO CHEST (NON CARDIAC). EXERTION CAUSES SOA. PATIENT C/O NIGHT SWEATING, STATING THAT IT IS DUE TO "THE CHANGE". LINEN CHANGED WELL GOWN. PATIENT ANXIOUS TO LEARN ABOUT RESULTS FROM CHEST XRAY AND ELEVATED WBC. RESTING QUIETLY. WILL MONITOR. ALSO ANXIOUS ABOUT GOING HOME.
[2018-04-05 06:43] LABS: HEMATOCRIT 47.7 % (37.0-47.0); HEMOGLOBIN 15.7 gm/dL (12.0-15.0); MCH 33.2 pg (26.0-34.0); MCV 100.7 fL (80.0-100.0); RBC 4.73 mil/uL (4.20-5.00); RDW 13.8 % (10.5-14.5); WBC 17.1 thou/uL (4.0-11.0)
[2018-04-05 06:50] LABS: CALCIUM 9.1 mg/dL (8.5-10.1); CREATININE 0.8 mg/dL (0.6-1.0); MAGNESIUM 2.4 mg/dL (1.8-2.4); POTASSIUM 4.4 mmol/L (3.5-5.1)
[2018-04-05 10:01] VITALS: BP 128/81
[2018-04-05 18:27] VITALS: BP 146/76
--- NOTE | 2018-04-06 05:26 | NUR ---
PATIENT ALERT AND ORIENTED X4. UP ADLIB IN ROOM WITH OXYGEN. SOME SOA WITH EXERTION. ANXIETY NOTED AND PRN ATIVAN TAKEN WITH GOOD RESULTS. PAIN MEDICATION GIVEN ALONG WITH COUGH SYRUP. FAMILY AT BEDSIDE IN EARLY EVENING. RESTED QUIETLY THROUGHOUT THE NIGHT. WILL MONITOR.
[2018-04-06 06:48] LABS: HEMATOCRIT 48.2 % (37.0-47.0); HEMOGLOBIN 16.5 gm/dL (12.0-15.0); MCH 34.3 pg (26.0-34.0); MCHC 34.2 g/dL (28.0-37.0); MCV 100.3 fL (80.0-100.0); RBC 4.8 mil/uL (4.20-5.00); RDW 13.7 % (10.5-14.5); WBC 19.7 thou/uL (4.0-11.0)
[2018-04-06 07:05] LABS: CALCIUM 8.9 mg/dL (8.5-10.1); CREATININE 0.9 mg/dL (0.6-1.0); MAGNESIUM 2.4 mg/dL (1.8-2.4); POTASSIUM 4.2 mmol/L (3.5-5.1)
[2018-04-06 08:00] VITALS: BP 143/88
--- NOTE | 2018-04-06 11:10 | NUR ---
A&0X4, C/O OF NONCARDIAC PAIN, CHRONIC, 02 N/C CHRONIC HERE AND AT HOME 2-3L, AMB STEADY, WANTS TO JUST REST IN BETWEEN CARES. LET HER KNOW WE COULD WALK SLOWLY IN HALLWAY, BM TODAY, SEE INTERVENTION FOR FULL ASSESSMENT. ENCOURAGED PT TO USE CALL LIGHT FOR ANY NEEDS, REFUSED 1100 RT TX D/T NAPPING, RT DROPPED OF MORE COMFORTABLE 02 HOSING FOR HER EARS
--- NOTE | 2018-04-06 15:48 | NUR ---
RT SAT OXIMETRY ORDERED PER DR. ARAUJO FOR TOMORROW BEFORE DISCHARGE, CALLED RT TO GIVE HEADS UP ON WHEN
[2018-04-06 19:34] VITALS: BP 143/83
--- NOTE | 2018-04-07 05:19 | NUR ---
Pt. remains A&O x4; able to make needs known. Swallows meds whole w/o difficulty. Remains cont. B&B; ambulates independently w/ steady gait. 02 intact at 2.5LNC; No sob noted and color WNL. 22' saline lock noted/intact to R wrist. IV push meds/flush per IV w/o difficulty. Pt. remains on lovenox therapy; no s/s pf bleeding noted. Nicotine patch intact to L shoulder. Patient has no c/o pain or discomfort. No s/s of acute distress noted. PO fluiids encouraged. Patient in bed w/ call light/personal belongings in reach. Will continue to monitor.
[2018-04-07 06:59] LABS: HEMATOCRIT 47.7 % (37.0-47.0); MCH 33.8 pg (26.0-34.0); MCHC 33.6 g/dL (28.0-37.0); MCV 100.7 fL (80.0-100.0); RBC 4.73 mil/uL (4.20-5.00); RDW 14.2 % (10.5-14.5); WBC 21.6 thou/uL (4.0-11.0)
[2018-04-07 07:08] LABS: CALCIUM 8.9 mg/dL (8.5-10.1); CREATININE 0.9 mg/dL (0.6-1.0); MAGNESIUM 2.3 mg/dL (1.8-2.4); POTASSIUM 4.8 mmol/L (3.5-5.1)
[2018-04-07 07:20] VITALS: BP 125/82
--- NOTE | 2018-04-07 08:32 | NUR ---
ASSUMED PT CARE AT 0700. ASSESSMENT COMPLETE AND IS CHARTED. VITAL SIGNS STABLE. ALERT/ORIENTED X4. PT REPORTS NON-CARDIAC CHEST SORENESS RATED 8/10 FROM COUGHING. REPORTS SMALL AMOUNT OF YELLOW SPUTUM PRODUCTION. DOES NOT APPEAR IN ANY ACUTE DISTRESS. ALERT/ORIENTED X4, REPORTS ANXIETY. O2 AT 2.5 L SHE IS AT HOME. OXYCODONE,XANAX, COUGH SYRUP GIVEN. WILL CONTINUE CURRENT CARE.
--- NOTE | 2018-04-07 10:13 | NUR ---
SW reviewed chart due to length of stay. ID consulted today--WBC is 21.6 today. Was 19.7 yesterday. Pt will need a new rest/exercise oximetry prior to discharge to determine pt's home O2 needs. Plan is for pt to d/c home when medically stable. ELIDIA is following to assist as needed [facility] discharge planning.
--- NOTE | 2018-04-07 13:02 | NUR ---
PT DOING FAIR THIS SHIFT. CONTINUES TO HAVE SHORTNESS OF BREATH WITH EXERTION. ANXIETY SEEMS TO HAVE SUBSIDED. NO NEW CONCERNS/COMPLAINTS AT THIS TIME. WILL CONTINUE PLAN OF CARE.
--- NOTE | 2018-04-07 16:49 | NUR ---
PT RESTING THIS AFTERNOON. RT STATES SHE REFUSED TREATMENT SHE IS VERY TIRED. OTHERWISE NO NEW CONCERNS. WILL CONTINUE TO MONITOR.
[2018-04-07 20:22] VITALS: BP 129/67
--- NOTE | 2018-04-08 05:11 | NUR ---
Pt A/OX4,up ad yo in room verbalizes feeling tired r/t pneumonia encouraged to get OOB frequently. On O2 @ 2.5 L/NC,has [place]HE[place] with less coughing noted. Medicated with Tussionex at HS with relief reported. Voiding without any difficulties voiced. No N/V reported,pt with great appetite. Resting quietly eyes closed at this time. Will continue to monitor pt.
[2018-04-08 06:21] LABS: HEMATOCRIT 46.4 % (37.0-47.0); MCH 34.3 pg (26.0-34.0); MCHC 34.5 g/dL (28.0-37.0); MCV 99.5 fL (80.0-100.0); RBC 4.66 mil/uL (4.20-5.00); RDW 13.7 % (10.5-14.5); WBC 21.1 thou/uL (4.0-11.0)
[2018-04-08 06:28] LABS: CALCIUM 9.1 mg/dL (8.5-10.1); CREATININE 0.7 mg/dL (0.6-1.0); MAGNESIUM 2.5 mg/dL (1.8-2.4); POTASSIUM 4.7 mmol/L (3.5-5.1)
[2018-04-08 09:45] VITALS: BP 129/67
--- NOTE | 2018-04-08 11:17 | NUR ---
ASSUME CARE OF PATIENT AT 0715; PT HAS COPD; PT HEART SOUNDS WERE NORMAL; PULSES REGULAR AND BOWEL SOUNDS ACTIVE; PT LUNGS ADVENTENTATIONS; PT IS CALM AND UP AD ROBIN; WALKING IN ROOM; WILL CONTINUE TO MONITOR
--- NOTE | 2018-04-08 12:13 | NUR ---
DISCHARGE NOTE: ELIDIA reviewed chart and spoke with nursing and attending physician. Pt may be ready for discharge home later today. Rest/exercise oximetry ordered to determine pt's home O2 needs. ELIDIA updated [facility] liaison. SW attempted to meet with pt at bedside. Pt was sleeping soundly. Contact info for [facility] placed in pt's discharge summary. ELIDIA is following to assist as needed with discharge plannning.
[2018-04-08] MEDS ORDERED: LEVAQUIN 500 M500 M3 PO (14:37)
[2018-04-08] MEDS ORDERED: ASPIR 8181 MG PO (14:38)
[2018-04-08] MEDS ORDERED: BENZONATATE100 MG PO (14:38)
[2018-04-08] MEDS ORDERED: SINGULAIR 10 MG10 M1 PO (14:38)
[2018-04-08] MEDS ORDERED: PREDNISONE 10 M10 MG PO (14:39)
[2018-04-08] MEDS ORDERED: XANAX 0.5 MG0.5 M1 PO (15:30)
== END 2018-04-08 16:57 | disposition home or self-care (01) | DRG 193 ==
LOC: ER 04:39 → EROBS 05:58 → 3W 05:58 → SICU 04-01 18:24 → ENTRNSPT 04-08 16:34 → SICU 04-08 16:57
PROVIDERS: Emergency Medicine; Internal Medicine; ADMIT Hospitalist
DX: J18.9 Pneumonia, unspecified organism (principal); J96.21 Acute and chronic respiratory failure with hypoxia; J44.1 Chronic obstructive pulmonary disease with (acute) exacerbation; J98.11 Atelectasis; J44.0 Chronic obstructive pulmonary disease with (acute) lower respiratory infection; F41.9 Anxiety disorder, unspecified; G89.29 Other chronic pain; M54.9 Dorsalgia, unspecified; M19.90 Unspecified osteoarthritis, unspecified site; Z71.6 Tobacco abuse counseling; F17.210 Nicotine dependence, cigarettes, uncomplicated; J45.909 Unspecified asthma, uncomplicated; D72.829 Elevated white blood cell count, unspecified; F32.9 Major depressive disorder, single episode, unspecified; Z83.6 Family history of other diseases of the respiratory system; Z86.73 Personal history of transient ischemic attack (TIA), and cerebral infarction without residual deficits; Z80.9 Family history of malignant neoplasm, unspecified; Z79.899 Other long term (current) drug therapy
CPT/HCPCS: 10879; 15002

== ENCOUNTER → 2018-09-14 | Outpatient (CLI) | payer OTHER ==
[~2018-09-14] MED LIST changes: +BENZONATATE100 MG PO; +LEVAQUIN 500 M500 M3 PO; +SINGULAIR 10 MG10 M1 PO
== END ==
LOC: RAD 14:16
DX: R06.00 Dyspnea, unspecified (principal)

== ENCOUNTER 2018-11-03 20:15 | Emergency (ER) | payer OTHER ==
[~2018-11-03] VITALS: Ht 170.2 cm; Wt 83.5 kg
[2018-11-03] MEDS ORDERED: XANAX 0.5 MG0.5 MG PO (20:31)
[2018-11-03] MEDS ORDERED: MOBIC15 MG PO (20:32)
[2018-11-03] MEDS ORDERED: CELEXA10 MG PO (20:32)
[2018-11-03] MEDS ORDERED: TRAMADOL 50 MG50 MG PO (20:32)
[2018-11-03] MEDS ORDERED: SYMBICORT160 MCG/4. INH ×2 (20:34)
[2018-11-03] MEDS ORDERED: SPIRIVA RESPIMAT4 G1 INH (20:36)
[2018-11-03 21:43] LABS: ABSOLUTE NEUTROPHILS 3.4 thou/uL (1.4-8.2); BASOPHILS 1.3 % (0.0-2.0); EOSINOPHILS 0.6 % (0.0-3.0); HEMATOCRIT 47.8 % (37.0-47.0); HEMOGLOBIN 16.5 gm/dL (12.0-15.0); LYMPHOCYTES 51.6 % (24.0-44.0); MCH 33.6 pg (26.0-34.0); MCHC 34.5 g/dL (28.0-37.0); MCV 97.2 fL (80.0-100.0); MONOCYTES 3.6 % (1.0-8.0); PLATELET COUNT 176 thou/uL (150-400); POLYS 42.9 % (36.0-66.0); RBC 4.92 mil/uL (4.20-5.00); RDW 13.9 % (10.5-14.5); WBC 7.8 thou/uL (4.0-11.0)
[2018-11-03 21:45] LABS: ANION GAP 10 mmol/L (7-16); BUN 17 mg/dL (7-18); CALCIUM 9.1 mg/dL (8.5-10.1); CHLORIDE 105 mmol/L (98-107); CO2 26 mmol/L (21-32); CREATININE 0.8 mg/dL (0.6-1.0); GLUCOSE 81 mg/dL (74-106); POTASSIUM 4.4 mmol/L (3.5-5.1); SODIUM 141 mmol/L (136-145)
[2018-11-03 21:55] LABS: ALBUMIN 3.7 g/dL (3.4-5.0); SGOT 24 U/L (15-37); SGPT 28 U/L (30-65); TOTAL BILIRUBIN 0.5 mg/dL (<0.1-1.0); TOTAL PROTEIN 7.7 g/dL (6.4-8.2); TROPONIN-I <0.06 ng/mL (<0.06)
[2018-11-03] MEDS ORDERED: DOXYCYCLINE 10100 MG PO (22:09)
[2018-11-03] MEDS ORDERED: MEDROLDOSEPACK PO (22:09)
[2018-11-03] MEDS ORDERED: PROMETH-CODEIN 65 ML PO (22:09)
[2018-11-03 22:26] VITALS: BP 122/86
--- NOTE | 2018-11-05 08:26 | EKG ---
[place] [address] [facility] [place] [address] ELECTROCARDIOGRAM REPORT Name: GREGG ARTHUR Room #: DEP [facility]#: [id number] Admission: 11/03/18 Attend Phys: Discharge: 11/03/18 Date of : 67 Report #: [id number] THIS REPORT FOR: //name// [facility] ED Test Date: 2018-11-03 Test Time: 21:12:01 Pat Name: GREGG ARTHUR Department: Room: Gender: F Classroom Assistant: OFELIA : 1965 Requested By: Armida Baker Order Number: [id number] MD: Ken Redding Measurements Intervals [place] Rate: 78 P: 77 TN: 150 QRS: 61 QRSD: 99 T: 23 QT: 390 QTc: 445 Interpretive Statements Sinus rhythm Normal tracing Compared to ECG 03/31/2018 05:03:25 No significant changes Electronically Signed On 11-05-2018 8:26:29 CDT by Ken Redding [email or web address] <ELECTRONICALLY SIGNED> By: Ken Redding MD, [facility] 11/05/18 08 11 11 Ken Redding MD, FACC /EPI
== END 2018-11-03 22:28 | disposition home or self-care (01) ==
LOC: ER 20:15
PROVIDERS: Physician Assistant
DX: J44.1 Chronic obstructive pulmonary disease with (acute) exacerbation (principal); M19.90 Unspecified osteoarthritis, unspecified site; G89.29 Other chronic pain; M54.9 Dorsalgia, unspecified; F17.210 Nicotine dependence, cigarettes, uncomplicated; Z86.73 Personal history of transient ischemic attack (TIA), and cerebral infarction without residual deficits

== ENCOUNTER 2019-02-06 15:45 | Inpatient (IN) | payer OTHER ==
[~2019-02-06] VITALS: Ht 170.2 cm; Wt 81.6 kg
[2019-02-06 15:45] VITALS: BP 125/84
[~2019-02-06 15:45] MED LIST changes: +CELEXA10 MG PO; +MEDROLDOSEPACK PO; +PROMETH-CODEIN 65 ML PO; +SPIRIVA RESPIMAT4 G1 INH; +SYMBICORT160 MCG/4. INH; +TRAMADOL 50 MG50 MG PO
[2019-02-06 16:20] LABS: ABSOLUTE NEUTROPHILS 8.4 thou/uL (1.4-8.2); BASOPHILS 0.5 % (0.0-2.0); EOSINOPHILS 0.1 % (0.0-3.0); HEMATOCRIT 52.7 % (37.0-47.0); HEMOGLOBIN 17.8 gm/dL (12.0-15.0); LYMPHOCYTES 24.9 % (24.0-44.0); MCH 33.6 pg (26.0-34.0); MCHC 33.7 g/dL (28.0-37.0); MCV 99.5 fL (80.0-100.0); PLATELET COUNT 203 thou/uL (150-400); POLYS 70.5 % (36.0-66.0); RBC 5.29 mil/uL (4.20-5.00); RDW 13.7 % (10.5-14.5); WBC 11.9 thou/uL (4.0-11.0)
[2019-02-06 16:28] LABS: ANION GAP 12 mmol/L (7-16); BUN 20 mg/dL (7-18); CALCIUM 10.2 mg/dL (8.5-10.1); CHLORIDE 105 mmol/L (98-107); CO2 25 mmol/L (21-32); CREATININE 1.2 mg/dL (0.6-1.0); GLUCOSE 120 mg/dL (74-106); POTASSIUM 4.1 mmol/L (3.5-5.1); SODIUM 142 mmol/L (136-145)
[2019-02-06 16:36] LABS: ALBUMIN 3.7 g/dL (3.4-5.0); MAGNESIUM 2.1 mg/dL (1.8-2.4); SGOT 20 U/L (15-37); SGPT 30 U/L (30-65); TOTAL BILIRUBIN 0.6 mg/dL (<0.1-1.0); TROPONIN-I <0.06 ng/mL (<0.06)
[2019-02-06 18:18] VITALS: BP 129/83
[2019-02-06 18:26] VITALS: BP 125/68
[2019-02-06 18:30] VITALS: BP 125/68
[2019-02-06 19:36] VITALS: BP 145/85
--- NOTE | 2019-02-06 21:57 | EKG ---
[place] [address] 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 : 1965 Requested By: Soni Mccord Order Number: [id number] MD: Ken Redding Measurements Intervals [place] Rate: 102 P: 82 NE: 135 QRS: 68 QRSD: 88 T: -8 QT: 321 QTc: 419 Interpretive Statements Sinus tachycardia Borderline T abnormalities, inferior leads Compared to ECG 11/03/2018 21:12:01 T-wave abnormality now present Electronically Signed On 02-06-2019 21:56:59 INVENTORY CONTROL ASSOCIATE by Ken Redding [email or web address] <ELECTRONICALLY SIGNED> By: Ken Redding MD, [facility] 02/06/196 15 15 Ken Redding MD, [facility] /EPI
--- NOTE | 2019-02-06 22:56 | NUR ---
PT ADMITTED TO THE UNIT AT APPROX 1930 FROM THE ER IN A STABLE CONDITION.PT ALERT XOX4.ADMISSION HX,EDUCATION AND ASSESSMENT COMPLETED.EXPIRATORY WHEEZING NOTED ON ASS,PT ON 3L/NC,STATED THAT SHE IS ON 4L/NC AT HOME.IVF INFUSING ORDERED.PT RESTING ON HER BED AT THIS TIME.CALL LIGHT WITHIN REACH.
[2019-02-07 07:22] VITALS: BP 133/75
--- NOTE | 2019-02-07 15:18 | NUR ---
ASSUMED CARE FOR PT AT 0700. PT REPORTS NON CARDIAC PAIN IN CHEST IS 9/10 BEFORE PAIN ANALGESIC. PT REMAINS COMPLIANT WITH SCHEDULED MEDS. PT RECEIVED XANAX ORDERED FOR ANXIETY AND REPORTS FEELING BETTER. PT REMAINS ON 3L O2 CONT., UP AD ROBIN, HOME MEDS RESTARTED. CALL LIGHT IN REACH, WILL CONT TO MONITOR.
[2019-02-07 17:01] VITALS: BP 145/90
[2019-02-07 19:11] VITALS: BP 145/86
[2019-02-08 04:33] VITALS: BP 138/85
--- NOTE | 2019-02-08 07:53 | NUR ---
PT AMBULATING TO BATHROOM INDEPENDENTLY AND IS TOLERATING FAIR. TRAMADOL PROVIDING PAIN RELIEF. RESTING COMFORTABLY. NO NEEDS VOICED. CALL LIGHT WITHIN REACH. WILL CONTINUE TO PROVIDE FREQUENT OBSERVATION.
--- NOTE | 2019-02-08 08:17 | NUR ---
PT RESTING IN BED ALERT XS 4. NO PAIN AT PRESENT. HAS O2 AT 2 L NO RESP DISTRESS. NO COUGH. HAS IV FLUIDS INFUSING NS AT 75/HR.
[2019-02-08 08:56] VITALS: BP 134/88
[2019-02-08] MEDS ORDERED: LEVAQUIN 500 M500 M2 PO (10:39)
[2019-02-08] MEDS ORDERED: GUAIFEN-CODEINE10 ML PO (10:39)
[2019-02-08] MEDS ORDERED: RAYOS5 MG PO (10:40)
[2019-02-08 11:50] VITALS: BP 134/88
[2019-02-08 13:08] VITALS: BP 134/88
[2019-02-08 15:27] VITALS: BP 134/88
== END 2019-02-08 14:42 | disposition home or self-care (01) | DRG 202 ==
LOC: ER 15:45 → 4S 18:08 → EROBS 18:08 → 4S 18:26
PROVIDERS: Physician Assistant; ADMIT Hospitalist
DX: J20.9 Acute bronchitis, unspecified (principal); J44.0 Chronic obstructive pulmonary disease with (acute) lower respiratory infection; J44.1 Chronic obstructive pulmonary disease with (acute) exacerbation; F41.9 Anxiety disorder, unspecified; G89.29 Other chronic pain; M19.91 Primary osteoarthritis, unspecified site; M54.9 Dorsalgia, unspecified; F17.210 Nicotine dependence, cigarettes, uncomplicated; Z79.899 Other long term (current) drug therapy; Z86.73 Personal history of transient ischemic attack (TIA), and cerebral infarction without residual deficits; Z83.6 Family history of other diseases of the respiratory system; Z80.9 Family history of malignant neoplasm, unspecified
CPT/HCPCS: 10102

== ENCOUNTER 2019-08-13 20:10 | Emergency (ER) | payer OTHER ==
[~2019-08-13] VITALS: Ht 170.2 cm; Wt 74.8 kg
[~2019-08-13 20:10] MED LIST changes: +GUAIFEN-CODEINE10 ML PO; +RAYOS5 MG PO
[2019-08-13] MEDS ORDERED: PROAIR HFA8.5 GM INH (20:24)
[2019-08-13] MEDS ORDERED: INCRUSE ELLI62.5 MCG INH (20:24)
[2019-08-13 21:07] LABS: ABSOLUTE NEUTROPHILS 5.1 thou/uL (1.4-8.2); EOSINOPHILS 0.4 % (0.0-3.0); HEMATOCRIT 52.1 % (37.0-47.0); HEMOGLOBIN 18.3 gm/dL (12.0-15.0); LYMPHOCYTES 40.7 % (24.0-44.0); MCV 97.1 fL (80.0-100.0); MONOCYTES 7.5 % (1.0-8.0); PLATELET COUNT 212 thou/uL (150-400); POLYS 50.4 % (36.0-66.0); RBC 5.37 mil/uL (4.20-5.00); RDW 14.2 % (10.5-14.5); WBC 10.2 thou/uL (4.0-11.0)
[2019-08-13 21:12] LABS: CALCIUM 9.6 mg/dL (8.5-10.1); CREATININE 1.3 mg/dL (0.6-1.0); POTASSIUM 3.9 mmol/L (3.5-5.1)
[2019-08-13 21:18] LABS: ALBUMIN 3.9 g/dL (3.4-5.0); TOTAL PROTEIN 8.1 g/dL (6.4-8.2)
[2019-08-13 21:53] VITALS: BP 117/84
[2019-08-13] MEDS ORDERED: ZOFRAN ODT4 MG PO (22:01)
== END 2019-08-13 22:15 | disposition home or self-care (01) ==
LOC: ER 20:10
PROVIDERS: Emergency Medicine
DX: R11.0 Nausea (principal); J44.9 Chronic obstructive pulmonary disease, unspecified; F17.210 Nicotine dependence, cigarettes, uncomplicated; G89.29 Other chronic pain; Z79.899 Other long term (current) drug therapy; Z86.73 Personal history of transient ischemic attack (TIA), and cerebral infarction without residual deficits; Z98.51 Tubal ligation status

== ENCOUNTER 2020-06-26 09:45 | Emergency (ER) | payer OTHER ==
[~2020-06-26] VITALS: Ht 172.7 cm; Wt 79.4 kg
[~2020-06-26 09:45] MED LIST changes: +INCRUSE ELLI62.5 MCG INH; +ZOFRAN ODT4 MG PO
[2020-06-26 10:37] LABS: BASOPHILS 0.6 % (0.0-2.0); EOSINOPHILS 0.7 % (0.0-3.0); HEMATOCRIT 48.5 % (37.0-47.0); HEMOGLOBIN 16.5 gm/dL (12.0-15.0); LYMPHOCYTES 42.4 % (24.0-44.0); MCH 33.2 pg (26.0-34.0); MCHC 33.9 g/dL (28.0-37.0); MCV 97.8 fL (80.0-100.0); MONOCYTES 6.7 % (1.0-8.0); PLATELET COUNT 227 thou/uL (150-400); POLYS 49.6 % (36.0-66.0); RBC 4.96 mil/uL (4.20-5.00); RDW 14.2 % (10.5-14.5)
[2020-06-26 10:40] LABS: ANION GAP 11 mmol/L (7-16); BUN 13 mg/dL (7-18); CALCIUM 9.4 mg/dL (8.5-10.1); CHLORIDE 105 mmol/L (98-107); CO2 25 mmol/L (21-32); CREATININE 0.8 mg/dL (0.6-1.0); GLUCOSE 108 mg/dL (74-106); POTASSIUM 4.1 mmol/L (3.5-5.1); SODIUM 141 mmol/L (136-145)
[2020-06-26 10:51] LABS: ALBUMIN 3.5 g/dL (3.4-5.0); LIPASE 107 U/L (73-393); SGOT 16 U/L (15-37); SGPT 26 U/L (14-59); TOTAL BILIRUBIN 0.3 mg/dL (0.2-1.0); TOTAL PROTEIN 8.1 g/dL (6.4-8.2); TROPONIN-I <0.06 ng/mL (<0.06)
[2020-06-26] MEDS ORDERED: PREDNISONE 20 M20 MG PO (12:43)
[2020-06-26 13:20] VITALS: BP 118/83
--- NOTE | 2020-06-27 09:25 | EKG ---
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: DEIDRE : 1965 Requested By: Artem Bernal Order Number: [id number] MD: Ken Redding Measurements Intervals [place] Rate: 108 P: 85 ID: 143 QRS: 70 QRSD: 90 T: -10 QT: 330 QTc: 443 Interpretive Statements Sinus tachycardia Biatrial enlargement Nonspecific T wave abnormality Compared to ECG 02/06/2019 16:16:17 No significant change was found Electronically Signed On 06-27-2020 9:25:41 CDT by Ken Redding [email or web address] <ELECTRONICALLY SIGNED> By: Ken Redding MD, [facility] 06/27/2025 0956 5 Ken Redding MD, FACC /EPI
== END 2020-06-26 13:30 | disposition home or self-care (01) ==
LOC: ER 09:45
PROVIDERS: Emergency Medicine
DX: J44.1 Chronic obstructive pulmonary disease with (acute) exacerbation (principal); F17.210 Nicotine dependence, cigarettes, uncomplicated; G89.29 Other chronic pain; Z88.0 Allergy status to penicillin; Z79.899 Other long term (current) drug therapy; Z86.73 Personal history of transient ischemic attack (TIA), and cerebral infarction without residual deficits; Z98.51 Tubal ligation status; Z87.01 Personal history of pneumonia (recurrent)